=== PATIENT | female | born 1960 | race Caucasian/White ===

== ENCOUNTER 2016-06-19 19:37 | Emergency (ER) | payer OTHER ==
[2016-06-19 19:43] VITALS: BP 131/95; PULSE 98; TEMP 97.8; BMI 38.0
[2016-06-19] MEDS ORDERED: KETOROLAC TROMETHAMINE 30 MG/1 ML VIAL IVPUSH ONE (19:57)
--- NOTE | 2016-06-19 20:01 | PDOC ---
History of Present Illness - General History Source: Patient, Spouse, Old Records Exam Limitations: No Limitations <Nyla Cesar - Last Filed: 06/19/16 20:19> <Jay العراقي - Last Filed: 06/19/16 20:34> - General Chief Complaint: Chest Pain Stated Complaint: CHEST PAIN Time Seen by Provider: 06/19/16 19:42 - History of Present Illness Initial Comments: 06/19/16 20:16 The patient is a 55 year old female, with no significant past medical history, who presents to the emergency department with sharp, constant radiating left sided chest pain for the past hour. The patient reports that the chest pain radiates to her left jaw and down her left arm. She describes the pain in her left arm as numbness. The patient states that she was sitting in the kitchen paying bills when her symptoms started. The patient reports an unremarkable stress test approximately 2 years ago. Her is at the bedside. Allergies: Ciprofloxacin, Ciprofloxacin HCl, Milnacipran HCl, Morphine, Divalproex Sodium. PCP: Dr. Gaby Pineda (Nyla Cesar) Past History <Nyla Cesar - Last Filed: 06/19/16 20:19> - Past Medical History Anemia: No Asthma: No Cancer: No Cardiac Disorders: Yes (MURMUR) CVA: No COPD: No CHF: No Dementia: No Diabetes: No GI Disorders: Yes (HIATAL HERNIA, IBS) Disorders: Yes (INTERSTITIAL CYSTITIS) HTN: No Hypercholesterolemia: Yes Liver Disease: No Psychiatric Problems: Yes (SLEEP, PANIC DISORDER) Seizures: No Thyroid Disease: No - Surgical History Abdominal Surgery: Yes (POSTERIOR UTERINE OBSTRUCTION,Bilateral Oopherectomy) Appendectomy: Yes (1974) Cardiac Surgery: No Cholecystectomy: Yes (1998) Lung Surgery: No Neurologic Surgery: No Orthopedic Surgery: Yes (RT ELBOW SURG 1999) - Immunization History Immunization Up to Date: Yes - Psycho/Social/Smoking Cessation Hx Anxiety: No Suicidal Ideation: No Smoking Status: No Smoking History: Never smoked Have you smoked in the past 12 months: No Number of Cigarettes Smoked Daily: 0 Information on smoking cessation initiated: No Hx Alcohol Use: No Drug/Substance Use Hx: No Substance Use Type: None Hx Substance Use Treatment: No <Jay العراقي - Last Filed: 06/19/16 20:34> - Past Medical History Allergies/Adverse Reactions: Allergies Allergy/AdvReac Type Severity Reaction Status Date / Time ciprofloxacin [From Cipro] Allergy Severe SWELLING-RESP Verified 06/19/16 19:38 DISTRESS ciprofloxacin HCl Allergy Severe SWELLING-RESP Verified 06/19/16 19:38 [From Cipro] DISTRESS milnacipran HCl Allergy Severe SEVERE Verified 06/19/16 19:38 [From Savella] ANXIETY morphine Allergy Severe PSYCHOTIC Verified 06/19/16 19:38 REACTION divalproex sodium Allergy Unknown Verified 06/19/16 19:38 [From Depakote] Home Medications: Ambulatory Orders Buspirone HCl [Buspar] 30 mg PO BID 08/17/13 Cholecalciferol (Vitamin D3) [Vitamin D3] 5,000 unit PO DAILY 08/17/13 Cyanocobalamin [Vitamin B12 -] 500 mg PO ASDIR 08/17/13 Dexlansoprazole [Dexilant -] 60 mg PO BID 08/17/13 Ezetimibe [Zetia] 10 mg PO DAILY 08/17/13 Thiamine HCl [Vitamin B1] 250 mg PO DAILY 08/17/13 Dicyclomine HCl [Bentyl] 10 mg PO Q8H PRN 10/21/13 Hydrochlorothiazide [Hctz -] 25 mg PO DAILY 10/21/13 Silodosin [Rapaflo] 8 mg PO DAILY 10/21/13 Acetaminophen/Caffeine/Butalb [Fioricet -] 2 tab PO Q4H PRN 06/19/16 Biotin 10,000 mcg PO ASDIR 06/19/16 Clonazepam [Klonopin] 1 mg PO TID 06/19/16 Eluxadoline [Viberzi] 100 mg PO BID 06/19/16 Levocarnitine [l-Carnitine] 500 mg PO ASDIR 06/19/16 Nortriptyline HCl 150 mg PO ASDIR 06/19/16 Oxycodone HCl/Acetaminophen [Percocet 10-325 mg Tablet] 1 each PO TID 06/19/16 Potassium Gluconate [Potassium] 90 mg PO ASDIR 06/19/16 Prochlorperazine Maleate [Compazine] 5 mg PO PRN 06/19/16 Suvorexant [Belsomra] 15 mg PO ASDIR 06/19/16 Ubidecarenone [Coq-10] 100 mg PO ASDIR 06/19/16 Cardiac Specific PMH - Complaint Specific PMHX Pacemaker: No <Jay العراقي - Last Filed: 06/19/16 20:34> Review of Systems - Review of Systems Able to Perform ROS?: Yes Constitutional: No: Symptoms Reported HEENTM: No: Symptoms Reported Respiratory: No: Symptoms reported Cardiac (ROS): Yes: Symptoms Reported, See HPI, Chest Pain ABD/GI: No: Symptoms Reported : No: Symptoms Reported Musculoskeletal: No: Symptoms Reported Integumentary: No: Symptoms Reported Neurological: Yes: Symptoms reported, See HPI, Numbness (Left arm) <Nyla eCsar - Last Filed: 06/19/16 20:19> *Physical Exam - Physical Exam General Appearance: Yes: Nourished, Appropriately Dressed, Apparent Distress, Mild Distress HEENT: positive: EOMI, SESAR, Normal ENT Inspection Neck: positive: Tender (LT TRAPZ TRIGGER POINT REPRODUCING PAIN OF CC.), Supple , Tender lateral Respiratory/Chest: positive: Chest Tender (3RD ICS MCL C/W PAIN OF CC), Lungs Clear, Normal Breath Sounds, Rapid RR. negative: Respiratory Distress Cardiovascular: positive: Regular Rhythm, Regular Rate, Tachycardia Gastrointestinal/Abdominal: positive: Normal Bowel Sounds, Soft. negative: Tender Musculoskeletal: positive: Normal Inspection. negative: CVA Tenderness, Vertebral Tenderness Extremity: positive: Normal Capillary Refill, Normal Inspection. negative: Pedal Edema Neurologic: positive: hookman II-XII NML intact, Fully Oriented, Alert, Normal Mood/ Affect, Normal Response, Motor Strength 5/5, Other (ANXIOUS) <Jay العراقي - Last Filed: 06/19/16 20:34> - Vital Signs Last Vital Signs Temp Pulse Resp BP Pulse Ox 97.8 F 98 H 18 131/95 100 06/19/16 19:39 06/19/16 19:39 06/19/16 19:39 06/19/16 19:39 06/19/16 19:39 - Medications Given in the ED: ED Medications Discontinued Medications Generic Name Dose Route Start Last Admin Trade Name Freq PRN Reason Stop Dose Admin Ketorolac Tromethamine 30 mg 06/19/16 19:57 06/19/16 20:02 Toradol Injection - IVPUSH 06/19/16 19:58 30 mg ONCE ONE Administration Progress Note <Nyla Cesar - Last Filed: 06/19/16 20:19> <Jay العراقي - Last Filed: 06/19/16 20:34> - Progress Note Progress Note: SYMPTOMS AND EXAM ARE C/W CERVICAL RADICULOPATHY AND UNLIKELY REPRESENT AN ACS NORMAL EKG WILL GIVE TORADOL AND REASSESS. PERSISTENT PAIN AND SLIGHLTLY MORE ANXIOUS REPEAT EKG UNCHANGED PT REASSURED WILL D/C ON IBUPROFEN AND WILL CALL HER PMD TOMORROW D/W DR. CASTRO (COVERING FOR [place]) (Jay العراقي) Medical Decision Making <Nyla Cesar - Last Filed: 06/19/16 20:19> <Jay العراقي - Last Filed: 06/19/16 20:34> - Medical Decision Making 06/19/16 20:[address] Castro, covering for patient's PCP (Dr. Gaby Pineda) , at 20:10. (Nyla Cesar) *DC/Admit/Observation/Transfer <Nyla Cesar - Last Filed: 06/19/16 20:19> <Jay العراقي - Last Filed: 06/19/16 20:34> Diagnosis at time of Disposition: Cervical radiculopathy - Discharge Dispostion Disposition: HOME Condition at time of disposition: Stable - Patient Instructions Additional Instructions: TAKE MEDICATIONS PRESCRIBED DO NOT TAKE EXTRA MEDICATIONS WARM COMPRESSES TO AREA ON AND OFF MEDICATIONS MIGHT MAKE YOU DIZZY AND UNSTEADY SO DON'T DO ANYTHING THAT MAY PUT YOU OR OTHERS IN DANGER UNTIL YOU KNOW HOW YOU REACT TO IT. SEE YOUR DOCTOR ON FRIDAY RETURN TO ED IF WORSENING OR NEW SYMPTOMS - Attestations Scribe Attestion: 06/19/16 20:03 Documentation prepared by Nyla Cesar, acting as medical auditor for Jay العراقي MD. (Nyla Cesar)
--- NOTE | 2016-06-21 12:41 | EKG ---
Test Reason : Blood Pressure : / mmHG Vent. Rate : 101 BPM Atrial Rate : 101 BPM P-R Int : 164 ms QRS Dur : 080 ms QT Int : 350 ms P-R-T Axes : 055 029 059 degrees QTc Int : 453 ms Poor baseline SINUS TACHYCARDIA NONSPECIFIC ST AND T WAVE ABNORMALITY WHEN COMPARED WITH ECG OF 14-OCT-2012 19:52, suggets repeating for better baseline Confirmed by MD BEN, MANOLO ([id number]) on 06/21/2016 12:41:40 PM Referred By: DR IRIZARRY Confirmed By:MANOLO CONTRERAS MD
== END 2016-06-19 20:44 | disposition home or self-care (01) ==
LOC: FER 19:37
PROC: 3E0333Z Introduction of Anti-inflammatory into Peripheral Vein, Percutaneous Approach (ICD-10-PCS; principal; 2016-06-19)
DX: M54.12 Radiculopathy, cervical region (principal); R01.1 Cardiac murmur, unspecified; E78.00 Pure hypercholesterolemia, unspecified; G47.9 Sleep disorder, unspecified; F41.9 Anxiety disorder, unspecified
CPT/HCPCS: 93005; 99282-25

== ENCOUNTER 2022-08-28 06:29 | Day surgery (SDC) | payer OTHER ==
[2022-08-22 13:45] VITALS: BMI 38.0
[2022-08-28] MEDS ORDERED: CIPROFLOXACIN 0.3% EYE DROPS 5 ML BOTTLE ONE (06:54)
[2022-08-28] MEDS ORDERED: BSS (NA/CA/MG/K) BALANCED SALT SOLUTION OPHTH SOLN 15 ML BOTTLE ONE (07:11)
[2022-08-28] MEDS ORDERED: NEO/POLYMYX B SULF/DEXAMETH OPHTHALMIC 5ML BOTTLE ONE (07:11)
[2022-08-28] MEDS ORDERED: LIDOCAINE HCL/PF 1% SDV 5ML VIAL ONE (07:11)
[2022-08-28] MEDS ORDERED: TETRACAINE 0.5% OPHTH SOLN 2 ML BOTTLE ONE (07:11)
[2022-08-28] MEDS ORDERED: TRYPAN BLUE 0.5 ML DISP.SYRIN ONE (07:11)
[2022-08-28] MEDS ORDERED: EPINEPHrine/PF 1 MG/1 ML (1:1,000) AMPULE ONE (07:11)
[2022-08-28] MEDS ORDERED: ACETYLCHOLINE 1:100 INTRA-OCUL 20 MG/2 ML KIT ONE (07:11)
[2022-08-28] MEDS ORDERED: CARBACHOL 0.01% INTRA-OCULAR 1.5 ML VIAL ONE (07:11)
[2022-08-28] MEDS ORDERED: PHENYLEPHRINE/KETOROLAC 4 ML VIAL IO ONE (07:11)
[2022-08-28] MEDS: CYCLOPENTOLATE 2% OPHTH SOLN 2 ML BOTTLE ONE ×3 (07:35→07:45)
[2022-08-28] MEDS: PHENYLEPHRINE 2.5% OPTHALMIC DROP 2ML BOTTLE ONE ×3 (07:35→07:45)
[2022-08-28] MEDS: TROPICAMIDE 1% OPHTH SOLN 15 ML BOTTLE ONE ×3 (07:35→07:45)
[2022-08-28] MEDS: TOBRAMYCIN 0.3% OPHTH SOLN 5 ML BOTTLE ONE ×3 (07:35→07:45)
[2022-08-28] MEDS ORDERED: MIDAZOLAM HCL 2 MG/2 ML SINGLE DOSE VIAL ONE (08:01)
[2022-08-28 08:38] VITALS: RESP 18; TEMP 98.2
[2022-08-28 09:06] VITALS: BP 135/75; PULSE 89
== END 2022-08-28 09:15 | disposition home or self-care (01) ==
LOC: FASU 06:29
PROVIDERS: ATTEND Ophthalmology
PROC: 08RJ3JZ Replacement of Right Lens with Synthetic Substitute, Percutaneous Approach (ICD-10-PCS; principal; 2022-08-28 08:06)
DX: H26.8 Other specified cataract (principal)
CPT/HCPCS: 66984; V2632; J1097

== ENCOUNTER 2022-08-30 16:58 | Emergency (ER) | payer OTHER ==
[2022-08-30] MEDS ORDERED: KETOROLAC TROMETHAMINE 60 MG/2 ML VIAL IM ONE (17:12)
[2022-08-30] MEDS ORDERED: CYCLOBENZAPRINE HCL 10 MG TABLET (FP) PO ONE (17:13)
[2022-08-30] MEDS ORDERED: LIDOCAINE 5% TOPICAL PATCH TP ONE (17:14)
[2022-08-30] MEDS ORDERED: CYCLOBENZAPRINE HCL 5 MG TABLET ONE (17:17)
[2022-08-30] MEDS ORDERED: KETOROLAC TROMETHAMINE 60 MG/2 ML VIAL ONE (17:17)
[2022-08-30] MEDS ORDERED: LIDOCAINE 5% TOPICAL PATCH ONE (17:18)
[2022-08-30 17:19] VITALS: BP 141/95; PULSE 98; RESP 18; TEMP 98.6; BMI 38.0
[2022-08-30] MEDS ORDERED: LIDOCAINE PATCH REMOVAL MC SCH (22:00)
== END 2022-08-30 18:30 | disposition home or self-care (01) ==
LOC: FER 16:58
PROC: 3E0233Z Introduction of Anti-inflammatory into Muscle, Percutaneous Approach (ICD-10-PCS; principal; 2022-08-30)
DX: M54.50 Low back pain, unspecified (principal)
CPT/HCPCS: 99284-25